=== PATIENT | male | born 1990 | race Caucasian/White ===

== ENCOUNTER 2022-09-12 09:37 | Day surgery (SDC) | payer OTHER ==
[~2022-09-12] VITALS: Ht 182.9 cm; Wt 171.9 kg
[2022-09-12] MEDS ORDERED: LIDOCAINE 2% 100 MG/5 ML UJET TP ONE (10:25)
[2022-09-12] MEDS ORDERED: fentaNYL citrate 0.05 MG/ML VIAL ONE (10:25)
[2022-09-12] MEDS ORDERED: fentaNYL citrate 0.05 MG/ML VIAL IVP ONE (12:45)
== END 2022-09-12 11:51 | disposition home or self-care (01) ==
LOC: MDS 09:37 → MMU 09:38 → MDS 11:51
PROVIDERS: ATTEND Internal Medicine Gastroenterology
DX: Z12.11 Encounter for screening for malignant neoplasm of colon (principal); K57.20 Diverticulitis of large intestine with perforation and abscess without bleeding; K57.30 Diverticulosis of large intestine without perforation or abscess without bleeding; J45.909 Unspecified asthma, uncomplicated; F32.A Depression, unspecified; K21.9 Gastro-esophageal reflux disease without esophagitis; F41.9 Anxiety disorder, unspecified; F17.210 Nicotine dependence, cigarettes, uncomplicated; Z88.0 Allergy status to penicillin; Z79.899 Other long term (current) drug therapy; Z20.822 Contact with and (suspected) exposure to COVID-19
CPT/HCPCS: 45378; 87426; J3010